=== PATIENT | male | born 1950 | race Caucasian/White ===

== ENCOUNTER 2022-06-05 12:56 | Day surgery (SDC) | payer OTHER ==
[2022-06-05] MEDS ORDERED: OMEP20ER PO (13:35)
[2022-06-05] MEDS ORDERED: TAMS.4ER PO (13:35)
[2022-06-05] MEDS ORDERED: AMLO5 PO (13:36)
== END 2022-06-05 23:59 | disposition home or self-care (01) ==
LOC: MHTC 12:56
DX: R55 Syncope and collapse (principal); I10 Essential (primary) hypertension; J45.909 Unspecified asthma, uncomplicated
CPT/HCPCS: 33285; C1764

== ENCOUNTER 2022-10-30 07:27 | Day surgery (SDC) | payer OTHER ==
[~2022-10-30 07:27] MED LIST: AMLO5 PO; OMEP20ER PO; TAMS.4ER PO
== END 2022-10-30 22:49 | disposition home or self-care (01) ==
LOC: CT 07:27
DX: I47.20 Ventricular tachycardia, unspecified (principal); I25.10 Atherosclerotic heart disease of native coronary artery without angina pectoris; I10 Essential (primary) hypertension
CPT/HCPCS: 75574; Q9967